=== PATIENT | female | born 1950 | race Hispanic/Latino ===

== ENCOUNTER 2017-04-20 10:15 | Outpatient (CLI) | payer MEDICARE ==
--- NOTE | 2017-04-20 14:00 | XRay Report ---
XRAY RIGHT KNEE 4 THREE VIEWS: 04/20/17 CLINICAL: Knee pain. FINDINGS: Moderate osteopenia. Medial joint space narrowing with osteophytes and mild varus deformity minimal narrowing of the lateral joint space with small osteophytes. Patellofemoral joint space narrowing with large osteophytes. No joint effusion.Normal soft tissues. IMPRESSION: Moderately severe osteoarthritis.
== END 2017-04-20 10:16 | disposition home or self-care (01) ==
LOC: SPVIMAG 10:15
PROVIDERS: ATTEND Orthopaedic Surgery Sports Medicine
DX: M17.11 Unilateral primary osteoarthritis, right knee (principal); M85.861 Other specified disorders of bone density and structure, right lower leg

== ENCOUNTER 2017-06-10 16:15 | Outpatient (CLI) | payer MEDICARE ==
--- NOTE | 2017-06-10 16:38 | XRay Report ---
Right shoulder: Pain. Inferior articular spurs are present on both the humerus and glenoid surfaces. The articular margins otherwise appear smooth and there is good preservation of the joint space. The bones are well-mineralized. No soft tissue changes. Surgical mane are identified in the lower axillary region. Impression: Degenerative changes of the inferior joint. RIGHT ELBOW: Pain The bony architecture is intact without evidence of fracture or dislocation. No significant soft tissue abnormality is seen. IMPRESSION: Normal right elbow.
== END 2017-06-10 16:16 | disposition home or self-care (01) ==
LOC: SPVIMAG 16:15
PROVIDERS: ATTEND Orthopaedic Surgery Sports Medicine
DX: M19.011 Primary osteoarthritis, right shoulder (principal)